=== PATIENT | male | born 1955 | race Caucasian/White ===

== ENCOUNTER 2024-09-01 08:44 | Day surgery (SDC) | payer MEDICARE, BC ==
[2024-09-01] MEDS: Lactated Ringers 1,000 ML IV SCH (09:11)
[2024-09-01] MEDS ORDERED: fentaNYL 50 MCG/ML SDV ONE (09:40)
[2024-09-01] MEDS ORDERED: Phenylephrine 1% 10 MG/ML SDV ONE (09:40)
[2024-09-01] MEDS ORDERED: Midazolam 1 MG/ML 2 ML SDV ONE (09:40)
[2024-09-01] MEDS ORDERED: Ketamine 200 MG/20 ML MDV ONE (09:40)
[2024-09-01] MEDS ORDERED: Propofol 200 MG/20 ML SDV ONE ×2 (09:40)
[2024-09-01 12:02] VITALS: BP 133/69; PULSE 66
== END 2024-09-01 11:20 | disposition home or self-care (01) ==
LOC: CC.SDS 08:44
PROVIDERS: ATTEND Family Medicine
DX: D12.3 Benign neoplasm of transverse colon (principal); D12.8 Benign neoplasm of rectum; I12.9 Hypertensive chronic kidney disease with stage 1 through stage 4 chronic kidney disease, or unspecified chronic kidney disease; N18.9 Chronic kidney disease, unspecified; Z79.899 Other long term (current) drug therapy
CPT/HCPCS: 00811; 88305; 88313; 99100; J2250; J2371; J2704; J3010; J3490; J7120

== ENCOUNTER 2025-02-23 07:34 | Day surgery (SDC) | payer MEDICARE, BC ==
[2025-02-23] MEDS: Lactated Ringers 1,000 ML IV SCH (08:10)
[2025-02-23] MEDS ORDERED: fentaNYL 50 MCG/ML SDV ONE (08:33)
[2025-02-23] MEDS ORDERED: Propofol 200 MG/20 ML SDV ONE ×2 (08:33)
[2025-02-23] MEDS ORDERED: Ketamine 200 MG/20 ML MDV ONE (08:33)
== END 2025-02-23 09:53 | disposition home or self-care (01) ==
LOC: CC.SDS 07:34
PROVIDERS: ATTEND Family Medicine
DX: D12.8 Benign neoplasm of rectum (principal); I12.9 Hypertensive chronic kidney disease with stage 1 through stage 4 chronic kidney disease, or unspecified chronic kidney disease; N18.9 Chronic kidney disease, unspecified; Z79.899 Other long term (current) drug therapy
CPT/HCPCS: 00811; J2704; J3010; J3490; J7120